=== PATIENT | female | born 1990 | race Caucasian/White ===

== ENCOUNTER 2016-08-03 21:44 | Emergency (ER) | payer OTHER ==
--- NOTE | 2016-08-03 22:26 | ED NURSING NOTES ---
Clinical Report - Nurses [facility] [address] [place] [address] 08/03/2016 21:45 Patient: LORAINE HUDSON TRIAGE Triage time 22:11. Acuity: LEVEL 5. Chief Complaint: REDNESS and PAIN TO RIGHT EYE. [place]ILMER COMA SCORE: [place] Coma Scale: 15- eyes open spontaneously (4); best verbal response- oriented x 4 (5); best motor response- obeys commands (6). --22:20 Carrol Waters R.N. 22:11 08/03/16. BP: 117/69. HR: 77. RR: 16. O2 saturation: 100%. Temp: 98.2 F. Pain level now: 07/24. Additional comments: 07/24 r eye pain. Pt states she also has the beginnings of a headache. . --22:20 Carrol Waters R.N. Weight: 63.5 kg stated. Height/Length: 65 inches Per Patient. BMI: 23.3. --22:16 Carrol Waters R.N. Medications None. --22:14 Carrol Waters R.N. Allergies None. --22:14 Carrol Waters R.N. History Arrived by private vehicle. Historian: patient. The patient may have sustained an injury. Mechanism- Pt has been rubbing eye, thinks she possible got some dirt in her eye. ( Eye pain and redness that started this morning upon awakening. Pt does not remember injuring eye, but states it jalloh/hurts and feels like an abrasion, of which she has experienced in the past.). She has had eye discomfort and eye irritation. She has had a moderate amount of watery discharge from the right eye. She has had moderate right-sided blurred vision. ( R eye 20/30, L eye 20/13). 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 PAST MEDICAL HX: Has had a prior eye injury (2 years ago). She wears contact lenses (none). Immunizations: up-to-date. Last normal menstrual period was 3 weeks ago. SOCIAL HX: Light tobacco smoker (cigarette)- less than 1/2 a pack per day. SELF HARM ASSESSMENT: A self harm assessment was performed. The patient answered "no" to the question "Have you recently felt down, depressed, or hopeless?", "Have you noticed less interest or pleasure in doing things?", "Do you have thoughts of harming or killing yourself?", "Are you here because you tried to hurt yourself?", "Have you ever tried to hurt yourself before today?", "Have you recently had thoughts about harming or killing others?" and "Do you have any dangerous items in your possession?". FALL RISK ASSESSMENT: Fall risk assessment completed. No fall risk identified. NUTRITIONAL RISK ASSESSMENT: The nutritional risk assessment revealed no deficiencies. FUNCTIONAL ASSESSMENT: Functional assessment: no impairments noted. LEARNING NEEDS ASSESSMENT: The learning needs assessment revealed no barriers. SKIN INTEGRITY ASSESSMENT: Skin integrity risk assessment completed. No skin integrity risk identified. --22:20 Carrol Waters R.N. PROBLEMS: Eczema. Asthma. --22:15 Carrol Waters R.N. Assessment The patient states feels the same. --22:20 Carrol Waters R.N. PHYSICAL ASSESSMENT Ambulatory to room. GENERAL / NEURO / PSYCH: Alert. Appears in pain. HEENT: Pupils equal, round and reactive to light. Conjunctival findings present: redness of the right conjunctiva and thin and clear exudate present in the right eye. Right ear within normal limits. Left ear within normal limits. Mouth inspection within normal limits. RESPIRATORY: Respirations not labored. CVS: Capillary refill less than 2 seconds. SKIN: Skin is warm and dry. --22:33 Carrol Waters R.N. DISPOSITION / DISCHARGE Departure time: 22:35. Condition at departure: improved. The goals identified in the patient's plan of care were met. No learning barriers present. Discharge instructions provided and reviewed with the patient. Patient verbalized understanding. Written instructions provided in Amharic. The patient was discharged by the physician. She was discharged home. She left the Emergency Department ambulatory and via private vehicle. Patient driving. FALL RISK ASSESSMENT: Fall risk assessment completed. No fall risk identified. --22:35 Kneeland, Carrol, R.N. Locked/Released at 08/03/2016 22:36 by Carrol Waters R.N.
--- NOTE | 2016-08-03 22:26 | ED CLINICAL REPORT ---
Clinical Report - Physicians/Mid Levels [facility] [address] [place] [address] 08/03/2016 21:45 Patient: LORAINE HUDSON Time Seen: 22:25; initial patient contact. Arrived- By private vehicle. Historian- patient. HISTORY OF PRESENT ILLNESS Chief Complaint: EYE REDNESS and IRRITATION. This started today, involves the right eye, is characterized as mild and is still present. The patient did not sustain an injury. Not injured from contact lenses. Eye discomfort, redness, irritation, discharge and itching. No eye matting, blurred vision, double vision, decreased vision or loss of vision. Eyelid swelling. Photophobia. REVIEW OF SYSTEMS No fever, sore throat or cough. All systems otherwise negative, except as recorded above. PAST HISTORY Eczema. Asthma. Medications: None. Allergies: None. SOCIAL HISTORY Current every day smoker. ADDITIONAL NOTES The nursing notes have been reviewed. PHYSICAL EXAM Vital Signs: 08/03/2016 22:11 BP: 117/69. HR: 77. RR: 16. O2 saturation: 100%. Temp: 98.2 F. Pain level now: 6/10. Have been reviewed as normal. Appearance: Alert. Oriented X3. No acute distress. Rt Eye: Eyelid edema. Injected conjunctiva. Slight exudate present. No subconjunctival hemorrhage, conjunctival foreign body or injury to the conjunctiva. Eyes: Visual acuity noted- see nurse's notes. Pupils equal, round and reactive to light. Accommodation normal. EOMs intact. Lt Eye: Left eye exam normal. Neck: No lymphadenopathy. Skin: No rash. Neuro: Oriented X 3. PROGRESS AND PROCEDURES Disposition: Discharged home in good condition. Condition: good. CLINICAL IMPRESSION Acute mucopurulent and bacterial conjunctivitis of the right eye. INSTRUCTIONS Do not work tomorrow. Your Current Medications: CONTINUE TAKING THE FOLLOWING MEDICATIONS: None*. Prescription Medications: Polytrim ophthalmic solution: instill 1 drop into the affected eye every 3 hours while awake for 7 days. Dispense five (5) mL. No refill. Substitution is permissible. Follow-up: Follow up with your doctor in about two days if not better. Call for an appointment. Screening today revealed the patient's blood pressure to be in the normal range. (Electronically signed by Vladimir Bailey Dr. 08/04/2016 0:46)
--- NOTE | 2016-08-03 22:26 | ED NURSING NOTES ---
Clinical Report - Nurses [facility] [address] [place] [address] 08/03/2016 21:45 Patient: LORAINE HUDSON TRIAGE Triage time 22:11. Acuity: LEVEL 5. Chief Complaint: REDNESS and PAIN TO RIGHT EYE. WILMER COMA SCORE: [place] Coma Scale: 15- eyes open spontaneously (4); best verbal response- oriented x 4 (5); best motor response- obeys commands (6). --22:20 Carrol Waters R.N. 22:11 08/03/16. BP: 117/69. HR: 77. RR: 16. O2 saturation: 100%. Temp: 98.2 F. Pain level now: 07/24. Additional comments: 07/24 r eye pain. Pt states she also has the beginnings of a headache. . --22:20 Carrol Waters R.N. Weight: 63.5 kg stated. Height/Length: 65 inches Per Patient. BMI: 23.3. --22:16 Carrol Waters R.N. Medications None. --22:14 Carrol Waters R.N. Allergies None. --22:14 Carrol Waters R.N. History Arrived by private vehicle. Historian: patient. The patient may have sustained an injury. Mechanism- Pt has been rubbing eye, thinks she possible got some dirt in her eye. ( Eye pain and redness that started this morning upon awakening. Pt does not remember injuring eye, but states it jalloh/hurts and feels like an abrasion, of which she has experienced in the past.). She has had eye discomfort and eye irritation. She has had a moderate amount of watery discharge from the right eye. She has had moderate right-sided blurred vision. ( R eye 20/30, L eye 20/13). 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 PAST MEDICAL HX: Has had a prior eye injury (2 years ago). She wears contact lenses (none). Immunizations: up-to-date. Last normal menstrual period was 3 weeks ago. SOCIAL HX: Light tobacco smoker (cigarette)- less than 1/2 a pack per day. SELF HARM ASSESSMENT: A self harm assessment was performed. The patient answered "no" to the question "Have you recently felt down, depressed, or hopeless?", "Have you noticed less interest or pleasure in doing things?", "Do you have thoughts of harming or killing yourself?", "Are you here because you tried to hurt yourself?", "Have you ever tried to hurt yourself before today?", "Have you recently had thoughts about harming or killing others?" and "Do you have any dangerous items in your possession?". FALL RISK ASSESSMENT: Fall risk assessment completed. No fall risk identified. NUTRITIONAL RISK ASSESSMENT: The nutritional risk assessment revealed no deficiencies. FUNCTIONAL ASSESSMENT: Functional assessment: no impairments noted. LEARNING NEEDS ASSESSMENT: The learning needs assessment revealed no barriers. SKIN INTEGRITY ASSESSMENT: Skin integrity risk assessment completed. No skin integrity risk identified. --22:20 Carrol Waters R.N. PROBLEMS: Eczema. Asthma. --22:15 Carrol Waters R.N. Assessment The patient states feels the same. --22:20 Carrol Waters R.N. PHYSICAL ASSESSMENT Ambulatory to room. GENERAL / NEURO / PSYCH: Alert. Appears in pain. HEENT: Pupils equal, round and reactive to light. Conjunctival findings present: redness of the right conjunctiva and thin and clear exudate present in the right eye. Right ear within normal limits. Left ear within normal limits. Mouth inspection within normal limits. RESPIRATORY: Respirations not labored. CVS: Capillary refill less than 2 seconds. SKIN: Skin is warm and dry. --22:33 Carrol Waters R.N. DISPOSITION / DISCHARGE Departure time: 22:35. Condition at departure: improved. The goals identified in the patient's plan of care were met. No learning barriers present. Discharge instructions provided and reviewed with the patient. Patient verbalized understanding. Written instructions provided in Spanish. The patient was discharged by the physician. She was discharged home. She left the Emergency Department ambulatory and via private vehicle. Patient driving. FALL RISK ASSESSMENT: Fall risk assessment completed. No fall risk identified. --22:35 Kneeland, Carrol, R.N. Locked/Released at 08/03/2016 22:36 by Carrol Waters R.N.
--- NOTE | 2016-08-03 22:26 | ED CLINICAL REPORT ---
Clinical Report - Physicians/Mid Levels [facility] [address] [place] [address] 08/03/2016 21:45 Patient: LORAINE HUDSON Time Seen: 22:25; initial patient contact. Arrived- By private vehicle. Historian- patient. HISTORY OF PRESENT ILLNESS Chief Complaint: EYE REDNESS and IRRITATION. This started today, involves the right eye, is characterized as mild and is still present. The patient did not sustain an injury. Not injured from contact lenses. Eye discomfort, redness, irritation, discharge and itching. No eye matting, blurred vision, double vision, decreased vision or loss of vision. Eyelid swelling. Photophobia. REVIEW OF SYSTEMS No fever, sore throat or cough. All systems otherwise negative, except as recorded above. PAST HISTORY Eczema. Asthma. Medications: None. Allergies: None. SOCIAL HISTORY Current every day smoker. ADDITIONAL NOTES The nursing notes have been reviewed. PHYSICAL EXAM Vital Signs: 08/03/2016 22:11 BP: 117/69. HR: 77. RR: 16. O2 saturation: 100%. Temp: 98.2 F. Pain level now: 6/10. Have been reviewed as normal. Appearance: Alert. Oriented X3. No acute distress. Rt Eye: Eyelid edema. Injected conjunctiva. Slight exudate present. No subconjunctival hemorrhage, conjunctival foreign body or injury to the conjunctiva. Eyes: Visual acuity noted- see nurse's notes. Pupils equal, round and reactive to light. Accommodation normal. EOMs intact. Lt Eye: Left eye exam normal. Neck: No lymphadenopathy. Skin: No rash. Neuro: Oriented X 3. PROGRESS AND PROCEDURES Disposition: Discharged home in good condition. Condition: good. CLINICAL IMPRESSION Acute mucopurulent and bacterial conjunctivitis of the right eye. INSTRUCTIONS Do not work tomorrow. Your Current Medications: CONTINUE TAKING THE FOLLOWING MEDICATIONS: None*. Prescription Medications: Polytrim ophthalmic solution: instill 1 drop into the affected eye every 3 hours while awake for 7 days. Dispense five (5) mL. No refill. Substitution is permissible. Follow-up: Follow up with your doctor in about two days if not better. Call for an appointment. Screening today revealed the patient's blood pressure to be in the normal range. (Electronically signed by Vladimir Bailey Dr. 08/04/2016 0:46)
--- NOTE | 2016-08-04 00:46 | ED MAR SUMMARY ---
..... Medication Administration Record [facility] [address] [place], [place] [id number] Patient: LORAINE HUDSON Arminda Visit ID: [id number] 26y, F Weight: 63.5 kg Height/Length: 65 in BMI: 23.3 ALLERGIES: None
--- NOTE | 2016-08-04 00:46 | ED MED RECONCILIATION SUMMARY ---
Patient: LORAINE HUDSON Medication Reconciliation Report [facility] VisitID: [id number] [address] [place] [address] 26y, F Registration Date/Time: 08/03/2016 Weight: 63.5 kg Height/Length: 65 in. BMI: 23.3 ALLERGIES: None The patient's Home Medications are listed below: NONE. The source(s) of the original Home Medication information: Not obtained. The following Medications were given to the patient in the Emergency Department: None. The following Medications were prescribed to the patient: Polytrim ophthalmic solution: instill 1 drop into the affected eye every 3 hours while awake for 7 days. Dispense five (5) mL. No refill. Substitution is permissible. -- Vladimir Bailey Dr.
--- NOTE | 2016-08-04 00:46 | ED DISCHARGE INSTRUCTIONS ---
Patient: LORAINE HUDSON General Instructions [facility] VisitID: [id number] [place] [address] 26y, F Registration Date/Time: 08/03/2016 INSTRUCTIONS Do not work tomorrow. Your Current Medications: CONTINUE TAKING THE FOLLOWING MEDICATIONS: None*. Prescription Medications: Polytrim ophthalmic solution: instill 1 drop into the affected eye every 3 hours while awake for 7 days. Dispense five (5) mL. No refill. Substitution is permissible. Follow-up: Follow up with your doctor in about two days if not better. Call for an appointment. Screening today revealed the patient's blood pressure to be in the normal range. ADDITIONAL INFORMATION Conjunctivitis, Bacterial You have a bacterial infection in the membranes covering the eye. The most common symptoms include a thick discharge from the eye, swollen eyelids, redness, eyelids sticking together upon awakening, and a gritty or scratchy feeling in the eye. The infection takes about 7-10 days to resolve with treatment. Home Care: Use prescribed eyedrops or ointment as directed to treat the infection. Apply a warm pack (towel soaked in warm water) to the affected eye 3-4 times a day. Do this just before applying medicine to the eye. Use a warm, wet cloth to wipe away crusting of the eyelids in the morning. This is caused by mucus drainage during the night. You may also use saline irrigating solution or artificial tears to rinse away mucus inside the eye. Do not put a patch over the eye. Wash your hands before and after touching the infected eye. This is to prevent spreading the infection to the other eye, and to other people. Do not share your towels or washcloths with others. You may use acetaminophen (Tylenol) or ibuprofen (Motrin, Advil) to control pain, unless another medicine was prescribed. [NOTE: If you have chronic liver or kidney disease or ever had a stomach ulcer or GI bleeding, talk with your doctor before using these medicines.] Do not wear contact lenses until your eyes have healed and all symptoms are gone. Follow Up with your doctor or this facility as directed, or if there has not been improvement within 5 days. Get Prompt Medical Attention if any of the following occur: Worsening vision Increasing pain in the eye Increasing swelling or redness of the eyelid Redness spreading around the eye Trimethoprim Sulfate, Polymyxin B Sulfate Eye drops, solution What is this medicine? POLYMYXIN B and TRIMETHOPRIM (luma i MIX in B and trye METH oh prim) eye drops treat certain eye infections caused by bacteria. How should I use this medicine? This medicine is used in the eye. Follow the directions on the prescription label. Wash your hands before and after use. Tilt your head back slightly. Pull your lower eyelid down gently to form a pouch. Do not touch the tip of the dropper to your eye, fingertips, or other surface. Squeeze the prescribed number of drops into the pouch. Close the eye gently to spread the drops. Use your medicine at regular intervals. Do not take your medicine more often than directed. Use all of your medicine as directed even if you think your are better. Do not skip doses or stop your medicine early. Talk to your citizenship instructor regarding the use of this medicine in children. While this drug may be prescribed for children and infants for selected conditions, precautions do apply. What side effects may I notice from receiving this medicine? Side effects that you should report to your doctor or health manager primary care as soon as possible: burning, stinging, or swelling change in vision or blurred vision that will not go away eye pain itching and redness rash Side effects that usually do not require medical attention (report to your doctor or health manager primary care if they continue or are bothersome): temporary blurred vision after applying temporary watering or stinging What may interact with this medicine? Interactions are not expected. Do not use any other eye products without advice of your doctor or health manager primary care. What if I miss a dose? If you miss a dose, use it as soon as you can. If it is almost time for your next dose, use only that dose. Do not use double or extra doses. Where should I keep my medicine? Keep out of the reach of children. Store at room temperature 15 to 25 degrees C (59 to 77 degrees F). Protect from light. To prevent the spread of infection, it is best to throw away any unused eye drops after you finish the course of treatment. Throw away any unused medicine after the expiration date. What should I tell my health care provider before I take this medicine? They need to know if you have any of these conditions: wear contact lenses an unusual or allergic reaction to polymyxin B, trimethoprim, other medicines, foods, dyes, or preservatives or trying to get breast-feeding What should I watch for while using this medicine? Check with your doctor or health manager primary care if your condition does not get better after 5 days, or if it gets worse. If you wear contact lenses, ask when you can use your lenses again. A burning or stinging reaction that does not go away may mean you are allergic to this product. Stop use and call your doctor or health manager primary care. To prevent the spread of infection, do not share eye products or other personal items with anyone else. You have been given the following additional information: Conjunctivitis, Bacterial Trimethoprim Sulfate, Polymyxin B Sulfate Eye drops, solution Do not work tomorrow. (Electronically signed by Vladimir Bailey Dr. 08/04/2016 0:46)
--- NOTE | 2016-08-04 00:46 | ED MAR SUMMARY ---
..... Medication Administration Record [facility] [address] [place], [place] [id number] Patient: LORAINE HUDSON Arminda Visit ID: [id number] 26y, F Weight: 63.5 kg Height/Length: 65 in BMI: 23.3 ALLERGIES: None
--- NOTE | 2016-08-04 00:46 | ED MED RECONCILIATION SUMMARY ---
Patient: LORAINE HUDSON Medication Reconciliation Report [facility] VisitID: [id number] [address] [place] [address] 26y, F Registration Date/Time: 08/03/2016 Weight: 63.5 kg Height/Length: 65 in. BMI: 23.3 ALLERGIES: None The patient's Home Medications are listed below: NONE. The source(s) of the original Home Medication information: Not obtained. The following Medications were given to the patient in the Emergency Department: None. The following Medications were prescribed to the patient: Polytrim ophthalmic solution: instill 1 drop into the affected eye every 3 hours while awake for 7 days. Dispense five (5) mL. No refill. Substitution is permissible. -- Vladimir Bailey Dr.
--- NOTE | 2016-08-04 00:46 | ED DISCHARGE INSTRUCTIONS ---
Patient: LORAINE HUDSON General Instructions [facility] VisitID: [id number] [place] [address] 26y, F Registration Date/Time: 08/03/2016 INSTRUCTIONS Do not work tomorrow. Your Current Medications: CONTINUE TAKING THE FOLLOWING MEDICATIONS: None*. Prescription Medications: Polytrim ophthalmic solution: instill 1 drop into the affected eye every 3 hours while awake for 7 days. Dispense five (5) mL. No refill. Substitution is permissible. Follow-up: Follow up with your doctor in about two days if not better. Call for an appointment. Screening today revealed the patient's blood pressure to be in the normal range. ADDITIONAL INFORMATION Conjunctivitis, Bacterial You have a bacterial infection in the membranes covering the eye. The most common symptoms include a thick discharge from the eye, swollen eyelids, redness, eyelids sticking together upon awakening, and a gritty or scratchy feeling in the eye. The infection takes about 7-10 days to resolve with treatment. Home Care: Use prescribed eyedrops or ointment as directed to treat the infection. Apply a warm pack (towel soaked in warm water) to the affected eye 3-4 times a day. Do this just before applying medicine to the eye. Use a warm, wet cloth to wipe away crusting of the eyelids in the morning. This is caused by mucus drainage during the night. You may also use saline irrigating solution or artificial tears to rinse away mucus inside the eye. Do not put a patch over the eye. Wash your hands before and after touching the infected eye. This is to prevent spreading the infection to the other eye, and to other people. Do not share your towels or washcloths with others. You may use acetaminophen (Tylenol) or ibuprofen (Motrin, Advil) to control pain, unless another medicine was prescribed. [NOTE: If you have chronic liver or kidney disease or ever had a stomach ulcer or GI bleeding, talk with your doctor before using these medicines.] Do not wear contact lenses until your eyes have healed and all symptoms are gone. Follow Up with your doctor or this facility as directed, or if there has not been improvement within 5 days. Get Prompt Medical Attention if any of the following occur: Worsening vision Increasing pain in the eye Increasing swelling or redness of the eyelid Redness spreading around the eye Trimethoprim Sulfate, Polymyxin B Sulfate Eye drops, solution What is this medicine? POLYMYXIN B and TRIMETHOPRIM (luma i MIX in B and trye METH oh prim) eye drops treat certain eye infections caused by bacteria. How should I use this medicine? This medicine is used in the eye. Follow the directions on the prescription label. Wash your hands before and after use. Tilt your head back slightly. Pull your lower eyelid down gently to form a pouch. Do not touch the tip of the dropper to your eye, fingertips, or other surface. Squeeze the prescribed number of drops into the pouch. Close the eye gently to spread the drops. Use your medicine at regular intervals. Do not take your medicine more often than directed. Use all of your medicine as directed even if you think your are better. Do not skip doses or stop your medicine early. Talk to your gauge and weigh machine operator regarding the use of this medicine in children. While this drug may be prescribed for children and infants for selected conditions, precautions do apply. What side effects may I notice from receiving this medicine? Side effects that you should report to your doctor or health direct care professional as soon as possible: burning, stinging, or swelling change in vision or blurred vision that will not go away eye pain itching and redness rash Side effects that usually do not require medical attention (report to your doctor or health direct care professional if they continue or are bothersome): temporary blurred vision after applying temporary watering or stinging What may interact with this medicine? Interactions are not expected. Do not use any other eye products without advice of your doctor or health direct care professional. What if I miss a dose? If you miss a dose, use it as soon as you can. If it is almost time for your next dose, use only that dose. Do not use double or extra doses. Where should I keep my medicine? Keep out of the reach of children. Store at room temperature 15 to 25 degrees C (59 to 77 degrees F). Protect from light. To prevent the spread of infection, it is best to throw away any unused eye drops after you finish the course of treatment. Throw away any unused medicine after the expiration date. What should I tell my health care provider before I take this medicine? They need to know if you have any of these conditions: wear contact lenses an unusual or allergic reaction to polymyxin B, trimethoprim, other medicines, foods, dyes, or preservatives or trying to get breast-feeding What should I watch for while using this medicine? Check with your doctor or health direct care professional if your condition does not get better after 5 days, or if it gets worse. If you wear contact lenses, ask when you can use your lenses again. A burning or stinging reaction that does not go away may mean you are allergic to this product. Stop use and call your doctor or health direct care professional. To prevent the spread of infection, do not share eye products or other personal items with anyone else. You have been given the following additional information: Conjunctivitis, Bacterial Trimethoprim Sulfate, Polymyxin B Sulfate Eye drops, solution Do not work tomorrow. (Electronically signed by Vladimir Bailey Dr. 08/04/2016 0:46)
== END 2016-08-03 22:33 | disposition home or self-care (01) ==
LOC: ED SRH 21:44
DX: H10.021 Other mucopurulent conjunctivitis, right eye (principal)